=== PATIENT | female | born 1965 | race Caucasian/White ===

== ENCOUNTER 2016-10-05 13:09 | Outpatient (CLI) | payer BC, OTHER ==
[2016-10-05 13:45] LABS: #Basophils 0.1 thou/uL (0.0-0.2); #Lymphocytes 3.1 thou/uL (1.20-3.40); #Monocytes 0.8 thou/uL (0.11-0.59); #Neutrophils 2.5 thou/uL (1.40-6.50); %Basophils 1.6 % (0.0-1.0); %Eosinophils 0.6 % (0.0-10.0); %Monocytes 11.7 % (0.0-10.0); Hematocrit 39.5 % (36.0-47.0); Mean Platelet Volume 7.5 fL (7.4-10.4); Red Blood Cell (RBC) Count 4.24 mill/uL (4.20-5.40); White Blood Cell (WBC) Count 6.5 thou/uL (4.8-10.8)
[2016-10-05 13:49] LABS: Bilirubin Negative (Negative); Blood, Urine Negative (Negative); Glucose, Urine (Dipstick) Negative (Negative); Ketone, Urine Negative (Negative); Nitrite Negative (Negative); Protein, Urine (Dipstick) Negative (Neg-Trace); Urobilinogen 0.2 mg/dL (0.2-1.0)
[2016-10-05 14:17] LABS: ALT (SGPT) 13 U/L (0-55); AST (SGOT) 15 U/L (5-34); Alkaline Phosphatase 56 U/L (40-150); Anion Gap 13 mmol/L (10-20); BUN (Urea Nitrogen) 14 mg/dL (7.0-18.7); Bilirubin, Total 0.7 mg/dL (0.2-1.2); Calc. Creatinine Clearance 0 mL/min (70-130); Carbon Dioxide 26 mmol/L (22-29); Chloride 106 mmol/L (98-107); Estimated GFR-MDRD 89; Globulin 2.5 g/dL (2.4-3.5); Protein, Total 6.9 g/dL (6.0-8.3)
--- NOTE | 2016-10-05 22:15 | RAD ---
CHEST TWO VIEWS 10/05/2016 COMPARISON: 10/17/2015 FINDINGS: The heart is normal in size, and the lungs are clear. There is no sign of pneumonia, pleural effusi on, or other focal pulmonary pathology. The trachea is midline, and the mediastinum appears normal. IMPRESSION: No acute findings. POS: HOME
== END 2016-10-05 13:10 | disposition home or self-care (01) ==
LOC: BURLAB 13:09 → BURRAD 13:10
PROVIDERS: ATTEND Family Medicine
DX: R50.9 Fever, unspecified (principal)
CPT/HCPCS: 36415; 71020; 80053; 81003; 85025; 87040; 87077; 87086; 87186

== ENCOUNTER 2022-05-26 09:38 | Emergency (ER) | payer BC, SELFPAY ==
[2022-05-26] MEDS ORDERED: Lidocaine 1% (PF) 30 ML VIAL ONE (09:45)
[2022-05-26] MEDS ORDERED: Lidocaine 1% PF 5 ML VIAL ONE (09:47)
[2022-05-26] MEDS ORDERED: Sulfameth/Trimethoprim DS 800-160mg TAB ONE ×2 (09:56→09:57)
[2022-05-26] MEDS ORDERED: Bacitracin 1 PK ONE (09:58)
[2022-05-26] MEDS ORDERED: Boostrix 0.5 ML (Tdap) VIAL (>/=7 yrs of age) ONE (09:58)
== END 2022-05-26 10:57 | disposition home or self-care (01) ==
LOC: BURERS 09:38
DX: S91.312A Laceration without foreign body, left foot, initial encounter (principal); W25.XXXA Contact with sharp glass, initial encounter
CPT/HCPCS: 12001; 90715; J2001

== ENCOUNTER 2022-12-29 14:14 | Emergency (ER) | payer BC | END 2022-12-29 15:33 | disposition home or self-care (01) | LOC: BURERS 14:14 | DX: S20.212A Contusion of left front wall of thorax, initial encounter (principal); S50.11XA Contusion of right forearm, initial encounter; S80.12XA Contusion of left lower leg, initial encounter; Y04.2XXA Assault by strike against or bumped into by another person, initial encounter ==

== ENCOUNTER 2023-04-03 22:49 | Emergency (ER) | payer BC ==
[2023-04-03] MEDS ORDERED: Bacitracin 1 PK ONE (23:15)
[2023-04-03] MEDS ORDERED: Lidocaine 1% (PF) 30 ML VIAL ONE (23:15)
== END 2023-04-03 23:35 | disposition home or self-care (01) ==
LOC: BURERS 22:49
DX: S61.215A Laceration without foreign body of left ring finger without damage to nail, initial encounter (principal); S61.227A Laceration with foreign body of left little finger without damage to nail, initial encounter; W26.0XXA Contact with knife, initial encounter
CPT/HCPCS: 12001; J2001